=== PATIENT | female | born 1990 | race African-American/Black ===

== ENCOUNTER 2019-12-12 01:38 | Emergency (ER) | payer SELFPAY ==
[~2019-12-12] VITALS: Ht 167.6 cm; Wt 125.0 kg
[2019-12-12] MEDS ORDERED: LEVETIRACETAM 500MG PREMIX 100 ML IV ONE (02:00)
[2019-12-12 05:30] VITALS: BP 121/79
== END 2019-12-12 05:53 | disposition home or self-care (01) ==
LOC: ER 01:38
DX: R56.9 Unspecified convulsions (principal); Z91.14 Patient's other noncompliance with medication regimen
CPT/HCPCS: 93005; 96365; 96366; 99284; J1953